=== PATIENT | female | born 1995 | race Caucasian/White ===

== ENCOUNTER 2017-04-30 21:16 | Emergency (ER) | payer MEDICAID ==
[~2017-04-30] VITALS: Ht 162.6 cm; Wt 135.2 kg
[~2017-04-30 21:16] MED LIST: LEVOTHROID SOD0.1 MG PO; PRE NATAL VIT PO; ZOFI PO
[2017-04-30 21:27] VITALS: Ht 162.6 cm; Wt 135.2 kg
[2017-04-30 23:02] LABS: BASOPHIL % 0.2 % (0-2); PLATELET COUNT 277 x10^3mcL (130-400); RED CELL DISTRIBUTION WIDTH 14.4 % (11.5-14.5)
[2017-04-30 23:18] LABS: CARBON DIOXIDE 28.8 mmol/L (21-32); CHLORIDE SERUM 101 mmol/L (98-107); CREATININE SERUM 0.8 mg/dL (0.6-1.0); GFR1 > 60 mL/min; GLUCOSE SERUM 97 mg/dL (74-106); POTASSIUM SERUM 4.1 mmol/L (3.5-5.1); SODIUM SERUM 138 mmol/L (136-145)
[2017-04-30 23:22] LABS: ALBUMIN 4.1 g/dL (3.4-5.0); ALKALINE PHOSPHATASE 74 U/L (46-116); ALT/SGPT 51 U/L (14-59); AMYLASE 59 U/L (25-115); AST/SGOT 28 U/L (15-37); BILIRUBIN TOTAL 0.9 mg/dL (0.20-1.00); LIPASE 127 IU/L (73-393)
[2017-04-30 23:23] LABS: TOTAL PROTEIN, SERUM 8.6 g/dL (6.4-8.2)
[2017-05-01 00:59] VITALS: BP 126/85
== END 2017-05-01 00:59 | disposition home or self-care (01) ==
LOC: ED 21:16
PROVIDERS: Emergency Medicine
DX: A08.4 Viral intestinal infection, unspecified (principal); N39.0 Urinary tract infection, site not specified; E66.01 Morbid (severe) obesity due to excess calories; E03.9 Hypothyroidism, unspecified
CPT/HCPCS: 36415; 83880; J1885; Q0162